=== PATIENT | male | born 1985 | race Caucasian/White ===

== ENCOUNTER 2022-08-19 19:05 | Emergency (ER) | payer OTHER, SELFPAY ==
[2022-08-19] MEDS ORDERED: Lidocaine 2% PF 5 ML VIAL ONE (19:27)
== END 2022-08-19 20:18 | disposition home or self-care (01) ==
LOC: ERS 19:05
DX: S01.81XA Laceration without foreign body of other part of head, initial encounter (principal); F17.210 Nicotine dependence, cigarettes, uncomplicated; Y04.8XXA Assault by other bodily force, initial encounter
CPT/HCPCS: 12011; J2001

== ENCOUNTER 2022-08-21 17:24 | Emergency (ER) | payer SELFPAY ==
[2022-08-21] MEDS ORDERED: Ketorolac Tromethamine 30 MG/ML VIAL ONE (18:40)
== END 2022-08-21 18:48 | disposition home or self-care (01) ==
LOC: ERS 17:24
DX: R07.89 Other chest pain (principal); F17.210 Nicotine dependence, cigarettes, uncomplicated
CPT/HCPCS: 71045; 93005; 96372; J1885